=== PATIENT | male | born 1990 | race Caucasian/White ===

== ENCOUNTER 2016-07-20 17:34 | Emergency (ER) | payer SELFPAY ==
[~2016-07-20] VITALS: Ht 177.8 cm; Wt 90.0 kg
[~2016-07-20 17:34] MED LIST: ALEVE220 M1 PO; AMOXICILLIN500 MG OR; AMOXICILLIN500 MG PO; AMOXICILLIN875 MG OR; CEPHALEXIN500 M1 OR; HYDROCO/APAP1 TA9 PO; LORTAB5 PO; NO CURRENT MEDS; NO HOME MEDS; ROBITUSSIN DM OR; ULTRAM50 M1 PO
[2016-07-20] MEDS ORDERED: MOTRIN800 MG PO (18:05)
[2016-07-20] MEDS ORDERED: LORTAB 5-325 MG1 TAB PO (18:05)
[2016-07-20] MEDS ORDERED: PENICILLN VK500 MG PO (18:05)
[2016-07-20 18:07] VITALS: BP 135/77
== END 2016-07-20 18:16 | disposition home or self-care (01) | DRG 159 ==
LOC: ED 17:34
DX: K02.9 Dental caries, unspecified (principal); F17.210 Nicotine dependence, cigarettes, uncomplicated

== ENCOUNTER 2016-07-26 19:36 | Emergency (ER) | payer SELFPAY ==
[~2016-07-26] VITALS: Ht 177.8 cm; Wt 95.0 kg
[~2016-07-26 19:36] MED LIST changes: +LORTAB 5-325 MG1 TAB PO; +MOTRIN800 MG PO; +PENICILLN VK500 MG PO
[2016-07-26] MEDS ORDERED: VICOPROFEN PO (22:11)
[2016-07-26] MEDS ORDERED: AMOXICILLIN500 MG PO (22:11)
[2016-07-26 22:15] VITALS: BP 129/74
== END 2016-07-26 22:15 | disposition home or self-care (01) | DRG 159 ==
LOC: ED 19:36
DX: K04.7 Periapical abscess without sinus (principal); F17.210 Nicotine dependence, cigarettes, uncomplicated

== ENCOUNTER 2016-08-09 15:33 | Emergency (ER) | payer SELFPAY ==
[~2016-08-09] VITALS: Ht 177.8 cm; Wt 90.0 kg
[~2016-08-09 15:33] MED LIST changes: +VICOPROFEN PO
[2016-08-09] MEDS ORDERED: AMOXICILLIN500 MG PO (16:30)
[2016-08-09] MEDS ORDERED: ULTRAM50 M1 PO (16:30)
[2016-08-09 16:39] VITALS: BP 139/84
== END 2016-08-09 16:39 | disposition home or self-care (01) | DRG 159 ==
LOC: ED 15:33
DX: K04.7 Periapical abscess without sinus (principal); F17.210 Nicotine dependence, cigarettes, uncomplicated; K08.89 Other specified disorders of teeth and supporting structures

== ENCOUNTER 2016-09-23 16:28 | Emergency (ER) | payer SELFPAY ==
[~2016-09-23] VITALS: Ht 177.8 cm; Wt 89.6 kg
[2016-09-23] MEDS ORDERED: PENICILLN VK500 MG PO ×2 (17:33→17:49)
[2016-09-23] MEDS ORDERED: NAPROSYN500 MG PO ×2 (17:33→17:49)
[2016-09-23 17:45] VITALS: BP 120/82
== END 2016-09-23 17:45 | disposition home or self-care (01) | DRG 159 ==
LOC: ED 16:28
DX: K02.9 Dental caries, unspecified (principal); F17.210 Nicotine dependence, cigarettes, uncomplicated; K03.81 Cracked tooth

== ENCOUNTER 2016-12-08 14:47 | Emergency (ER) | payer SELFPAY ==
[~2016-12-08] VITALS: Ht 177.8 cm; Wt 80.0 kg
[~2016-12-08 14:47] MED LIST changes: +NAPROSYN500 MG PO
[2016-12-08 15:20] VITALS: BP 136/70
[2016-12-08] MEDS ORDERED: MOTRIN800 MG PO (15:20)
[2016-12-08] MEDS ORDERED: PENICILLN VK500 MG PO (15:20)
[2016-12-08] MEDS ORDERED: LORTAB 5-325 MG1 TAB PO (15:20)
== END 2016-12-08 15:20 | disposition home or self-care (01) | DRG 159 ==
LOC: ED 14:47
DX: K08.89 Other specified disorders of teeth and supporting structures (principal); K02.9 Dental caries, unspecified; Z72.0 Tobacco use

== ENCOUNTER 2017-01-24 14:42 | Emergency (ER) | payer SELFPAY ==
[~2017-01-24] VITALS: Ht 177.8 cm; Wt 90.0 kg
[2017-01-24] MEDS ORDERED: PENICILLN VK500 MG PO (15:08)
[2017-01-24] MEDS ORDERED: LORTAB 5-325 MG1 TAB PO (15:08)
[2017-01-24] MEDS ORDERED: MOTRIN800 MG PO (15:08)
[2017-01-24 15:10] VITALS: BP 137/79
== END 2017-01-24 15:15 | disposition home or self-care (01) | DRG 159 ==
LOC: ED 14:42
DX: K02.9 Dental caries, unspecified (principal)

== ENCOUNTER 2017-02-20 12:51 | Emergency (ER) | payer SELFPAY ==
[~2017-02-20] VITALS: Ht 177.8 cm; Wt 88.6 kg
[2017-02-20] MEDS ORDERED: NAPROSYN500 MG PO (16:01)
[2017-02-20] MEDS ORDERED: AMOXICILLIN500 M2 PO (16:01)
[2017-02-20 16:12] VITALS: BP 121/81
== END 2017-02-20 16:26 | disposition home or self-care (01) | DRG 159 ==
LOC: ED 12:51
DX: K08.89 Other specified disorders of teeth and supporting structures (principal); F17.200 Nicotine dependence, unspecified, uncomplicated

== ENCOUNTER 2017-04-15 07:36 | Emergency (ER) | payer SELFPAY ==
[~2017-04-15] VITALS: Ht 177.8 cm; Wt 90.0 kg
[~2017-04-15 07:36] MED LIST changes: +AMOXICILLIN500 M2 PO
[2017-04-15 08:03] LABS: HEMATOCRIT 48.9 % (39.0-50.0); HEMOGLOBIN 16.7 g/dl (14.0-18.0); IMMATURE GRANULOCYTES 0.5 % (0.0-1.0); MEAN CELL VOLUME 91.6 fL CALC (80.0-100.0); MEAN CORPUSCULAR HGB 31.3 pG CALC (26.0-32.0); MEAN CORPUSCULAR HGB CONC 34.2 g/L CALC (32.0-36.0); NEUT# 14.27 thou/uL (1.82-7.42); RED BLOOD COUNT 5.34 mill/uL (4.70-6.10); RED CELL DISTRI WIDTH 12.8 % (11.5-15.5)
[2017-04-15 09:13] LABS: ALBUMIN 4.5 g/dL (3.2-5.0); ALKALINE PHOSPHATASE 71 u/l (38-126); ANION GAP 17 (6-22 (CALC)); BILIRUBIN, TOTAL 0.4 mg/dL (0.0-1.4); BUN 7 mg/dL (9-20); BUN/CREATININE RATIO 9 (12-20 (CALC)); CALCIUM 9.1 mg/dL (8.4-10.2); CARBON DIOXIDE 25 mmol/l (22-30); CHLORIDE 111 mmol/l (95-108); CREATININE 0.8 mg/dL (0.7-1.3); ETHYL ALCOHOL 78 mg/dl (0-30); GFR > 60 ML/MIN (>=60 (CALC)); GFR FOR AFR.AMER. > 60 ML/MIN (>=60 (CALC)); GLUCOSE 95 mg/dL (75-110); POTASSIUM 4.5 mmol/l (3.5-5.1); SGOT/AST 40 u/l (17-59); SGPT/ALT 32 u/l (21-72); SODIUM 148 mmol/l (137-146); TOTAL PROTEIN 7.2 g/dL (6.3-8.2)
[2017-04-15 10:18] LABS: URINE BILIRUBIN - DIPSTICK NEGATIVE (NEGATIVE); URINE BLOOD DIPSTICK TRACE-INTACT (NEGATIVE); URINE COLOR YELLOW; URINE GLUCOSE - DIPSTICK NEGATIVE (NEGATIVE); URINE KETONE TRACE mg/dL (NEGATIVE); URINE LEUK ESTERASE NEGATIVE (NEGATIVE); URINE NITRITE - DIPSTICK NEGATIVE (Negative); URINE PROTEIN - DIPSTICK NEGATIVE (NEG-TRACE); URINE UROBILINOGEN - DIPSTICK 0.2 E.U./dL (0.2)
[2017-04-15 10:29] LABS: URINE CLARITY CLEAR
[2017-04-15 10:31] LABS: BARBITURATES NEGATIVE (NEGATIVE); COCAINE NEGATIVE (NEGATIVE); METHADONE NEGATIVE (NEGATIVE); OXCYCODONE NEGATIVE (NEGATIVE); TETRAHYDROCANNABIONOL POSITIVE (NEGATIVE); TRICYLIC ANTIDEPRESSANTS NEGATIVE (NEGATIVE)
[2017-04-15 11:47] VITALS: BP 114/72
== END 2017-04-15 11:47 | DRG 605 ==
LOC: ED 07:36
PROVIDERS: Emergency Medicine
PROC: 0HQ5XZZ Repair Chest Skin, External Approach (ICD-10-PCS; principal; 2017-04-15)
DX: S21.112A Laceration without foreign body of left front wall of thorax without penetration into thoracic cavity, initial encounter (principal); S00.83XA Contusion of other part of head, initial encounter; F19.10 Other psychoactive substance abuse, uncomplicated; F17.210 Nicotine dependence, cigarettes, uncomplicated; X78.1XXA Intentional self-harm by knife, initial encounter; Y04.0XXA Assault by unarmed brawl or fight, initial encounter
CPT/HCPCS: Q9967

== ENCOUNTER 2017-04-18 11:35 | Emergency (ER) | payer SELFPAY ==
[~2017-04-18] VITALS: Ht 177.8 cm; Wt 89.6 kg
[2017-04-18] MEDS ORDERED: BL IBUPROFEN200 MG PO (11:43)
[2017-04-18] MEDS ORDERED: MOTRIN200 MG PO (11:49)
[2017-04-18] MEDS ORDERED: ULTRAM50 M1 PO (12:12)
[2017-04-18 12:20] VITALS: BP 127/89
[2017-04-18] MEDS ORDERED: LORTAB 1010 MG PO (13:09)
== END 2017-04-18 12:20 | disposition home or self-care (01) | DRG 563 ==
LOC: ED 11:35
PROC: 2W3JX1Z Immobilization of Right Finger using Splint (ICD-10-PCS; principal; 2017-04-18)
DX: S62.610A Displaced fracture of proximal phalanx of right index finger, initial encounter for closed fracture (principal); W18.30XA Fall on same level, unspecified, initial encounter; Y92.009 Unspecified place in unspecified non-institutional (private) residence as the place of occurrence of the external cause

== ENCOUNTER 2017-05-01 18:22 | Emergency (ER) | payer SELFPAY ==
[~2017-05-01] VITALS: Ht 177.8 cm; Wt 80.0 kg
[~2017-05-01 18:22] MED LIST changes: +BL IBUPROFEN200 MG PO; +LORTAB 1010 MG PO; +MOTRIN200 MG PO
[2017-05-01] MEDS ORDERED: PERCOCET 5/325M1 TAB PO (19:34)
[2017-05-01 19:56] VITALS: BP 126/73
== END 2017-05-01 19:56 | disposition home or self-care (01) | DRG 563 ==
LOC: ED 18:22
PROC: 2W3JX1Z Immobilization of Right Finger using Splint (ICD-10-PCS; principal; 2017-05-01)
DX: S62.610A Displaced fracture of proximal phalanx of right index finger, initial encounter for closed fracture (principal); M25.441 Effusion, right hand; W22.8XXA Striking against or struck by other objects, initial encounter; Y93.89 Activity, other specified; Y92.89 Other specified places as the place of occurrence of the external cause

== ENCOUNTER 2017-06-07 17:15 | Emergency (ER) | payer SELFPAY ==
[~2017-06-07] VITALS: Ht 177.8 cm; Wt 100.0 kg
[~2017-06-07 17:15] MED LIST changes: +PERCOCET 5/325M1 TAB PO
[2017-06-07] MEDS ORDERED: TORADOL PO (17:49)
[2017-06-07] MEDS ORDERED: AMOXICILLIN500 M2 PO (17:49)
[2017-06-07 17:55] VITALS: BP 143/70
== END 2017-06-07 17:55 | disposition home or self-care (01) | DRG 159 ==
LOC: ED 17:15
DX: K02.9 Dental caries, unspecified (principal); F17.210 Nicotine dependence, cigarettes, uncomplicated